=== PATIENT | female | born 1965 | race Caucasian/White ===

== ENCOUNTER 2016-10-29 13:56 | Emergency (ER) | payer BC ==
[~2016-10-29] VITALS: Ht 162.6 cm; Wt 82.9 kg
[~2016-10-29 13:56] MED LIST: CALC500C70 PO; CYAN10005 PO; MISCCAP80 PO; OMEG10007 PO; [UNRECOGNIZED DRUG - CODE] PO
[2016-10-29 14:01] VITALS: TEMP 36.7; Ht 162.6 cm; Wt 82.9 kg
[2016-10-29] MEDS ORDERED: ONDANSETRON INJ 2 MG/ML 2 ML VIAL IV STA (15:50)
[2016-10-29] MEDS ORDERED: SODIUM CHLORIDE 0.9% 1000ML 1,000 ML IV STA (15:50)
[2016-10-29] MEDS ORDERED: OPTIRAY 320 IV PRN (16:15)
[2016-10-29 16:28] LABS: BASO % 0.5 %; BASO ABS # 0.03 K/uL (0-0.2); COMPLETE YES; EOS % 2.6 %; HEMATOCRIT 43.9 % (37-47); IG% 0.3 %; LYMPH % 36.3 %; MEAN CELL VOLUME 86.9 fL (80-100); MEAN CORPUSCULAR HEMOGLOBIN 29.3 pg (25-34); MEAN CORPUSCULAR HGB CONC 33.7 g/dl (32-36); MEAN PLATELET VOLUME 10.4 fL (7.4-10.4); MONO % 7.4 %; NEUT % 52.9 %; PLATELET COUNT 253 K/uL (130-400); RED BLOOD COUNT 5.05 M/uL (4.2-5.4); WHITE BLOOD COUNT 6.62 K/uL (4.8-10.8)
[2016-10-29 16:42] LABS: URINE APPEARANCE CLEAR (CLEAR); URINE BILIRUBIN NEG (NEG); URINE COLOR YELLOW; URINE NITRITE NEG (NEG); URINE PH 5.5 (4.5-7.5); URINE SPECIFIC GRAVITY 1.012 (1.000-1.030); UROBILINOGEN NEG (NEG)
[2016-10-29 16:45] LABS: MANUAL MICROSCOPIC REQUIRED? NO; REVIEW REQ? NO
[2016-10-29 16:56] LABS: BUN/CREATININE RATIO 11.9 (10-20); CALCIUM 9.6 mg/dl (8.5-10.1); CREATININE 0.72 mg/dl (0.60-1.20); POTASSIUM 3.6 mmol/L (3.5-5.1)
--- NOTE | 2016-10-29 18:44 | DIAGNOSTIC IMAGING REPORT ---
CT OF THE ABDOMEN AND PELVIS WITH CONTRAST CLINICAL HISTORY: Right-sided abdominal pain. COMPARISON STUDY: CT of the abdomen and pelvis November 07, 2015 per TECHNIQUE: Following IV administration of 115 mL of Optiray-320, axial images of the abdomen and pelvis were obtained from the lung bases to the proximal femurs. Images were reviewed in the axial, sagittal, and coronal planes. IV contrast was administered without complication. Oral contrast was administered. CT DOSE: 412.92 mGy.cm FINDINGS: The lung bases are clear. The liver, spleen, adrenal glands, kidneys and pancreas are normal. There is no peripancreatic or pericholecystic infiltration. There is no biliary or pancreatic ductal dilatation. The caliber and wall thickness of small and large bowel are normal. The appendix is normal. There is no ascites. There is no lymphadenopathy. There is no evidence for a bowel obstruction. Skeletal structures are unremarkable. The uterus is surgically absent. IMPRESSION: No acute process within the abdomen or pelvis. Normal appendix. Electronically signed by: Beau Gipson M.D. 10/29/2016 6:43 PM Dictated Date/Time: 10/29/2016 6:39 PM
[2016-10-29 19:17] VITALS: BP 140/90; PULSE 88; O2SAT 98
--- NOTE | 2016-10-29 22:14 | EMERGENCY ROOM VISIT NOTE ---
ED Visit Note First contact with patient: 15:05 Chief Complaint: Right-sided abdominal pain. History of Present Illness: Ms. Schmitt is a 50 year-old white female who ambulates into the ED accompanied by her complaining of right mid quadrant abdominal pain. Historically patient reports status post hysterectomy and exploratory laparoscopy for lysis of adhesions. Patient reports for the last 2 weeks she has had a bloating sensation in her abdomen and mild diffuse abdominal discomfort. This has been associated with intermittent nausea, chills, one day of multiple episodes of watery stools. She was seen by her primary care provider and a right upper quadrant ultrasound was performed on Wednesday, 2 days ago; I was able to retrieve the radiologist report from her ultrasound which shows and unremarkable right upper quadrant ultrasound with no apparent some gallbladder disease, liver disease or renal disease. Is noted that the pancreas was not well-visualized. She reports over the last 2 or 3 days her pain has become severe and constant. She places her discomfort in the mid quadrant area on the right side of the abdomen. She is not able to describe her discomfort. She rates her discomfort 8/10. She denies radiation of her discomfort. Her pain worsens with palpation and moving into the sitting position. She has not identified any alleviating factors related to the pain. She reports she has taken one dose of Tylenol last evening without relief of her discomfort. Associated with her discomfort she continues to be nauseated but has not vomited and has noted over the last 2 days that she has only moved her bowels once and reports that a small amount. Additionally she reports she is not flagellated and she is having mild urinary burning and an increase in urinary frequency. Patient denies silvio fevers, sweats, skin eruptions, skin color changes, upper respiratory tract symptoms, shortness of breath, chest pain, rectal bleeding, black/tarry stools, hematuria, vaginal bleeding, vaginal discharge, back/flank pain. Review of Systems: As noted above in history of present illness. All body systems were reviewed and found to be negative as noted above. Past Medical History: As previously noted Current Medications: Probiotic, vitamin B12, omega-3 fish oil. Allergies to Medications: Fluconazole. Social History: Patient is currently employed; she lives with her and feels safe in her home environment; she admits to tobacco use and denies alcohol use. Physical Examination: Vital Signs: Date Time Temp Pulse Resp B/P Pulse Ox O2 Delivery O2 Flow Rate FiO2 10/29/16 19:17 88 20 140/90 98 Room Air 10/29/16 18:00 81 20 153/101 98 Room Air 10/29/16 16:00 74 20 147/100 96 Room Air 10/29/16 14:01 36.7 75 18 163/98 96 Room Air GENERAL: 50-year-old female in moderate distress due to pain, nontoxic-appearing , afebrile and hemodynamically stable. NEUROLOGICAL: Awake, alert and oriented to person, place and time. Answering questions appropriately and following commands. Normal gait. Good hand eye coordination. SKIN: Warm, dry and pink. No soft tissue eruptions or trauma noted. HEENT: Atraumatic and normocephalic. PERRLA. Sclera white and conjunctiva pink. Oral cavity moist and pink. Pharynx is nonerythematous or edematous. Speech normal. No lymphadenopathy. Trachea midline. No jugular venous distention. BACK: No tenderness over the bony spine. No CVA tenderness. THORAX: Lungs sounds are clear to auscultation and equal bilaterally with symmetrical chest wall. No wheezing, rales or rhonchi. No crepitus, tenderness , subcutaneous air or deformities noted. HEART: Regular rate and rhythm. No gallops, rubs or murmurs are appreciated. ABDOMEN: Mildly distended, soft with diffuse tenderness that is more pronounced in the right mid quadrant. Decreasedbowel sounds in all quadrants. No guarding , rigidity or organomegaly. EXTREMITIES: Moves all extremities well on command and with purpose. All distal neurovascular statuses are intact and equal bilaterally. ED Course: Patient is assessed as noted above. Laboratory Testing: Test 10/29/16 16:15 10/29/16 16:20 Range/Units White Blood Count 6.62 4.8-10.8 K/uL Red Blood Count 5.05 4.2-5.4 M/uL Hemoglobin 14.8 12.0-16.0 g/dL Hematocrit 43.9 37-47 % Mean Corpuscular Volume 86.9 80-100 fL Mean Corpuscular Hemoglobin 29.3 25-34 pg Mean Corpuscular Hemoglobin Concent 33.7 32-36 g/dl Platelet Count 253 130-400 K/uL Mean Platelet Volume 10.4 7.4-10.4 fL Neutrophils (%) (Auto) 52.9 % Lymphocytes (%) (Auto) 36.3 % Monocytes (%) (Auto) 7.4 % Eosinophils (%) (Auto) 2.6 % Basophils (%) (Auto) 0.5 % Neutrophils # (Auto) 3.51 1.4-6.5 K/uL Lymphocytes # (Auto) 2.40 1.2-3.4 K/uL Monocytes # (Auto) 0.49 0.11-0.59 K/uL Eosinophils # (Auto) 0.17 0-0.5 K/uL Basophils # (Auto) 0.03 0-0.2 K/uL RDW Standard Deviation 40.2 36.4-46.3 fL RDW Coefficient of Variation 12.5 11.5-14.5 % Immature Granulocyte % (Auto) 0.3 % Immature Granulocyte # (Auto) 0.02 0.00-0.02 K/uL Sodium Level 141 136-145 mmol/L Potassium Level 3.6 3.5-5.1 mmol/L Chloride Level 106 98-107 mmol/L Carbon Dioxide Level 28 21-32 mmol/L Anion Gap 7.0 3-11 mmol/L Blood Urea Nitrogen 9 7-18 mg/dl Creatinine 0.72 0.60-1.20 mg/dl Est Creatinine Clear Calc Drug Dose 96.3 ml/min Estimated GFR () 112.4 Estimated GFR (Non- 97.0 BUN/Creatinine Ratio 11.9 10-20 Random Glucose 81 70-99 mg/dl Calcium Level 9.6 8.5-10.1 mg/dl Total Bilirubin 0.6 0.2-1 mg/dl Direct Bilirubin 0.1 0-0.2 mg/dl Aspartate Amino Transf (AST/SGOT) 22 15-37 U/L Alanine Aminotransferase (ALT/SGPT) 38 12-78 U/L Alkaline Phosphatase 90 45-117 U/L Total Protein 8.3 6.4-8.2 gm/dl Albumin 4.4 3.4-5.0 gm/dl Lipase 117 73-393 U/L Urine Color YELLOW Urine Appearance CLEAR CLEAR Urine pH 5.5 4.5-7.5 Urine Specific [place] 1.012 1.000-1.030 Urine Protein NEG NEG Urine Glucose (UA) NEG NEG Urine Ketones NEG NEG Urine Occult Blood NEG NEG Urine Nitrite NEG NEG Urine Bilirubin NEG NEG Urine Urobilinogen NEG NEG Urine Leukocyte Esterase NEG NEG Contrast Abdominal/Pelvic CT: Was reviewed by myself and read by the radiologist showing no acute process within the pelvis or abdomen and normal- appearing appendix. Patient was hydrated with normal saline and received 4 mg of Zofran; she was offered pain medications and refused. Patient was reassessed multiple times during her stay in the emergency department. Patient's case was reviewed with Dr. Guidry; we agreed on diagnostic approach , treatment, disposition and plan. Patient was educated about natalio's findings and instructed on her treatment plan; she verbalizes understanding and agreement with this plan. Clinical Impression: Right-sided abdominal pain. Decision-Making: Initially my differential diagnosis I considered appendicitis, bowel obstruction, constipation, colitis, perforated viscus, kidney stone and other causes. Disposition: Patient discharged home in stable condition accompanied by her ; prior to departure she was reassessed and subjectively reported she was feeling much better and rated her discomfort 1/10 and reported resolution of nausea. Plan: Patient was encouraged to use ibuprofen or acetaminophen as needed for pain every 6 hours or alternate every 3 hours. Patient was encouraged to bland diet for the next 48 hours and stay well hydrated. Patient was encouraged to follow-up with her PCP for recheck and possible referral to gastroenterology. Patient was encouraged return the ED for worsening/uncontrolled pain, fevers, uncontrolled vomiting, bloody stools or any new/concerning symptoms.
== END 2016-10-29 19:18 | disposition home or self-care (01) ==
LOC: C.EDB 14:00 → C.EDC 19:18
DX: R10.84 Generalized abdominal pain (principal); Z72.0 Tobacco use; Z90.710 Acquired absence of both cervix and uterus; Z98.890 Other specified postprocedural states

== ENCOUNTER → 2017-01-15 | Outpatient (CLI) | payer BC ==
[~2017-01-15] MED LIST changes: -CALC500C70 PO; -[UNRECOGNIZED DRUG - CODE] PO
--- NOTE | 2017-01-18 07:43 | MAMMOGRAPHY REPORT ---
BILATERAL DIGITAL SCREENING MAMMOGRAM TOMOSYNTHESIS WITH CAD: 01/15/2017 CLINICAL HISTORY: Routine screening. Patient has no complaints. TECHNIQUE: Breast tomosynthesis in addition to standard 2D mammography was performed. Current study was also evaluated with a Computer Aided Detection (CAD) system. COMPARISON: Comparison is made to exams dated: 01/10/2016 mammogram, 01/23/2015 mammogram - [facility], 01/01/2014 mammogram - [facility], 01/07/2015 mammogram - [facility], 10/07/2012 mammogram, and 10/02/2011 mammogram - [facility]. BREAST COMPOSITION: There are scattered areas of fibroglandular density in both breasts. FINDINGS: No suspicious masses, calcifications, or areas of architectural distortion are noted in ei ther breast. There has been no significant interval change compared to prior exams. IMPRESSION: ACR BI-RADS CATEGORY 1: NEGATIVE There is no mammographic evidence of malignancy. A 1 year screening mammogram is recommended. The pa tient will receive written notification of the results. Approximately 10% of breast cancers are not detected with mammography. A negative mammographic report should not delay biopsy if a clinically suggestive mass is present. Raisa Stuart M.D. ah/:01/15/2017 16:00:54 Head Waiter/Waitress: Manda FUENTES)(Renee), [facility] letter sent: Normal 1/2 BI-RADS Code: ACR BI-RADS Category 1: Negative
== END | disposition home or self-care (01) ==
LOC: C.MAMM 08:42
PROVIDERS: ATTEND Obstetrics & Gynecology
DX: Z12.31 Encounter for screening mammogram for malignant neoplasm of breast (principal)

== ENCOUNTER → 2018-01-21 | Outpatient (CLI) | payer BC ==
[~2018-01-21] MED LIST changes: +LINA1CAP PO; +MULT-506 PO; +PRLSR20 PO; +TRIATAB3 PO
--- NOTE | 2018-01-21 14:35 | MAMMOGRAPHY REPORT ---
BILATERAL DIGITAL SCREENING MAMMOGRAM TOMOSYNTHESIS WITH CAD: 01/21/2018 CLINICAL HISTORY: Routine screening. Patient has no complaints. TECHNIQUE: The study was acquired using full field digital technology and interpreted from soft copy. Breast tomosynthesis in addition to standard 2D mammography was performed. Current study was also ev aluated with a Computer Aided Detection (CAD) system. COMPARISON: Comparison is made to exams dated: 01/15/2017 mammogram, 01/10/2016 mammogram, 01/23/2015 ma mmogram, 01/07/2015 mammogram - [facility], 01/01/2014 mammogram, and 10/07/2012 mammo gram - [facility]. BREAST COMPOSITION: There are scattered areas of fibroglandular density in both breasts. FINDINGS: No suspicious masses, calcifications, or areas of architectural distortion are noted in either breast . There has been no significant interval change compared to prior exams. IMPRESSION: ACR BI-RADS CATEGORY 1: NEGATIVE There is no mammographic evidence of malignancy. A 1 year screening mammogram is recommended.( 019) The patient will receive written notification of the results. Some breast cancers are not detected with mammography. A negative mammographic report should not scarlett y biopsy if a clinically suggestive mass is present. Raisa Stuart M.D. /:01/21/2018 08:51:03 Chair Mechanic: Haven Harrell [facility] letter sent: Normal 1/2 BI-RADS Code: ACR BI-RADS Category 1: Negative
== END | disposition home or self-care (01) ==
LOC: C.MAMM 08:30
PROVIDERS: ATTEND Obstetrics & Gynecology
DX: Z12.31 Encounter for screening mammogram for malignant neoplasm of breast (principal)

== ENCOUNTER → 2018-01-28 | Day surgery (SDC) | payer BC ==
[2018-01-24 16:11] VITALS: Ht 162.6 cm; Wt 81.8 kg
[~2018-01-28] VITALS: Ht 162.6 cm; Wt 81.8 kg
[~2018-01-28] MED LIST changes: +LIDOCAINE HCL 2% 2 ML VIAL (20MG/ML) ONE; +PROPOFOL IV EMULSION 10 MG/ML 20 ML VIAL ONE; +SODIUM CHLORIDE 0.9% 500ML 500 ML IV ONE
--- NOTE | 2018-01-28 12:57 | Endo History and Physical ---
History & Physical Date of Service: Jan 28, 2018. Chief Complaint: h/o polyps Referring Physician: Dr. Dodd History of Present Illness hx polyps Past Medical History Gynecological Problems, Other Past Surgical History Hx Cardiac Surgery: No Hx Internal Defibrillator: No Hx Pacemaker: No Hx Abdominal Surgery: Yes (HYSTERECTOMY,REMOVAL PELVIC MASS TO R OVARY-10/26/14, MASS REM/R OVARY 2016 ) Hx of Implantable Prosthesis: No Hx Post-Op Nausea and Vomiting: No Hx Cancer Surgery: No Hx Thoracic Surgery: No Hx Orthopedic: No Hx Urinary Tract Surgery: No Family History Colon CA Social History Smoking Status: Current Every Day Smoker Hx Substance Use: No Hx Alcohol Use: Yes (OCC SOCIAL) Allergies Coded Allergies: Fluconazole (Verified Allergy, Intermediate, Rash, 01/28/18) Current Medications Reported Home Medications Medications Dose Route/Sig Max Daily Dose Days Date Category Linzess (Linaclotide) 145 Mcg Cap 145 Mcg PO PRN 01/24/18 Reported Prilosec (Omeprazole) 20 Mg Capcr 20 Mg PO PRN 01/24/18 Reported Triamterene/Hctz 37.5-25MG (Triamterene/HCTZ) 1 Tab Tab 1 Tab PO PRN 01/24/18 Reported Multivitamin (Multivitamins) Tab 1 Tab PO QAM 01/24/18 Reported [place]-3 (Fish Oil) 1 Ea Cap 1 Cap PO QAM 12/11/14 Reported Vitamin B-12 (Cyanocobalamin) 1,000 Mcg Tab 1,000 Mcg PO QAM 10/26/14 Reported Probiotic (Probiotic Product) 1 Cap Cap 1 Cap PO QAM 10/26/14 Reported Vital Signs Weight (Kilograms): 81.82 Height (Feet): 5 Height (Inches): 4 Date Time Temp Pulse Resp B/P (MAP) Pulse Ox O2 Delivery O2 Flow Rate FiO2 01/28/18 12:35 37.2 76 18 145/99 (114) 94 Room Air Physical Exam General Appearance: WD/WN, no apparent distress Respiratory/Chest: Auscultation: breath sounds normal Cardiovascular: Heart Auscultation: RRR Abdomen: Bowel Sounds: normal Inspection & Palpation: soft, non-distended, no tenderness, guarding & rebound Assessment and Plan colonsocopy
--- NOTE | 2018-01-28 13:31 | Discharge Instructions ---
Endoscopy Patient Instructions Date / Procedure(s) Performed Jan 28, 2018. Colonoscopy Allergy Information Coded Allergies: Fluconazole (Verified Allergy, Intermediate, Rash, 01/28/18) Discharge Date / Findings Jan 28, 2018. polyp-removed Medication Instructions Restart Stopped Medication(s): Reported Home Medications Medications Dose Route/Sig Max Daily Dose Days Date Category Linzess (Linaclotide) 145 Mcg Cap 145 Mcg PO PRN 01/24/18 Reported Prilosec (Omeprazole) 20 Mg Capcr 20 Mg PO PRN 01/24/18 Reported Triamterene/Hctz 37.5-25MG (Triamterene/HCTZ) 1 Tab Tab 1 Tab PO PRN 01/24/18 Reported Multivitamin (Multivitamins) Tab 1 Tab PO QAM 01/24/18 Reported [place]-3 (Fish Oil) 1 Ea Cap 1 Cap PO QAM 12/11/14 Reported Vitamin B-12 (Cyanocobalamin) 1,000 Mcg Tab 1,000 Mcg PO QAM 10/26/14 Reported Probiotic (Probiotic Product) 1 Cap Cap 1 Cap PO QAM 10/26/14 Reported Reported Home Medications Medications Dose Route/Sig Max Daily Dose Days Date Category Linzess (Linaclotide) 145 Mcg Cap 145 Mcg PO PRN 01/24/18 Reported Prilosec (Omeprazole) 20 Mg Capcr 20 Mg PO PRN 01/24/18 Reported Triamterene/Hctz 37.5-25MG (Triamterene/HCTZ) 1 Tab Tab 1 Tab PO PRN 01/24/18 Reported Multivitamin (Multivitamins) Tab 1 Tab PO QAM 01/24/18 Reported [place]-3 (Fish Oil) 1 Ea Cap 1 Cap PO QAM 12/11/14 Reported Vitamin B-12 (Cyanocobalamin) 1,000 Mcg Tab 1,000 Mcg PO QAM 10/26/14 Reported Probiotic (Probiotic Product) 1 Cap Cap 1 Cap PO QAM 10/26/14 Reported Provider Instructions Activity Restrictions - No exercising or heavy lifting for 24 hours. - Do not drink alcohol the day of the procedure. - Do not drive a car or operate machinery until the day after the procedure. - Do not make any important decisions or sign important papers in 24 hours after the procedure. Following Day: - Return to full activity which may include returning to work/school. Diet Start your diet with liquids and light foods (jello, soup, juice, toast). Then eat your usual diet if not nauseated. Treatment For Common After Affects For mild abdominal pain, bloating, or excessive gas: - Rest - Eat lightly - Lie on right side Follow-Up Information Follow-up with Dr. Dodd as scheduled Anesthesia Information What You Should Know You have had a procedure that required some medicine to reduce anxiety and discomfort. This treatment is called moderate sedation. After receiving the treatment, you may be sleepy, but you will be able to breathe on your own. The effects of the treatment may last for several hours. Follow these instructions along with Activity/Diet recommendations noted above: * Do NOT do anything where dizziness or clumsiness would be dangerous. * Rest quietly at home today, then you can be up and about tomorrow. * Have a responsible person stay with you the rest of today. * You may have had an I.V. today. If so, you may take the dressing off later today. Recommendations Call your doctor if: * Trouble breathing * Continuous vomiting for more than 24 hours * Temperature above 101 degrees * Severe abdominal pain or bloating * Pain not relieved by pain medicine ordered * There is increased drainage or redness from any incision * A large amount of rectal bleeding greater than 2-3 tablespoons. (If you had a polyp/s removed or have hemorrhoids, a small amount of blood - from the rectum is to be expected.) * You have any unanswered questions or concerns. IN THE EVENT OF A SERIOUS EMERGENCY, GO TO THE NEAREST EMERGENCY ROOM Your discharge instructions were prepared by provider Sam Young. Patient Instructions Signature Page Timothy Schmitt Patient (or Guardian) Signature/Date: I have read and understand the instructions given to me by my caregivers. Caregiver/RN/Doctor Signature/Date: The above-named patient and/or guardian has received patient instructions on this date. + Original Patient Signature Page (only) stays with chart. Please make copy for patient.
--- NOTE | 2018-01-28 13:45 | GI REPORT ---
Patient Name: Timothy Schmitt Procedure Date: 01/28/2018 12:56 PM Date of : 1965 Admit Type: Outpatient Age: 52 Gender: Female Attending MD: Sam Young MD Procedure: Colonoscopy Providers: Sam Young MD Referring MD: Juve Dodd Indications: High risk colon cancer surveillance: Personal history of colonic polyps Medicines: Propofol per Anesthesia Complications: No immediate complications. Estimated blood loss: None. Estimated Blood Loss: Estimated blood loss: none. Procedure: Pre-Anesthesia Assessment: - Prior to the procedure, a History and Physical was performed, and patient medications and allergies were reviewed. The patient's tolerance of previous anesthesia was also reviewed. The risks and benefits of the procedure and the sedation options and risks were discussed with the patient. All questions were answered, and informed consent was obtained. Prior Anticoagulants: The patient has taken no previous anticoagulant or antiplatelet agents. ASA Grade Assessment: II - A patient with mild systemic disease. After reviewing the risks and benefits, the patient was deemed in satisfactory condition to undergo the procedure. After I obtained informed consent, the scope was passed under direct vision. Throughout the procedure, the patient's blood pressure, pulse, and oxygen saturations were monitored continuously. The Scope was introduced through the anus and advanced to the terminal ileum, with identification of the appendiceal orifice and IC valve. The colonoscopy was performed without difficulty. The patient tolerated the procedure well. The quality of the bowel preparation was good. Findings: The perianal and digital rectal examinations were normal. Pertinent negatives include normal sphincter tone, no palpable rectal lesions and no anal lesion or abnormality was detected. A 10 mm polyp was found in the proximal ascending colon. The polyp was sessile. The polyp was removed with a hot snare. Resection and retrieval were complete. Verification of patient identification for the specimen was done by the physician and optoelectronic technician using the patient's name and medical record number. The exam was otherwise without abnormality. The terminal ileum appeared normal. Impression: - One 10 mm polyp in the proximal ascending colon, removed with a hot snare. Resected and retrieved. - The examination was otherwise normal. - The examined portion of the ileum was normal. Recommendation: - Discharge patient to home (ambulatory). - Resume regular diet. - Continue present medications. - Await pathology results. - Repeat colonoscopy for surveillance based on pathology results. - Return to referring physician as previously scheduled. MD Sam Allen MD 01/28/2018 1:44:48 PM This report has been signed electronically. Note Initiated On: 01/28/2018 12:56 PM Number of Addenda: 0 I attest to the content of the Intraoperative Record and orders documented therein, exceptions below {[id number]}
--- NOTE | 2018-01-28 14:07 | Anesthesiology Progress Note ---
Anesthesia Post Op Note Date & Time Jan 28, 2018 at 14:07 Vital Signs Pain Intensity: 0 Vital Signs Past 12 Hours Date Time Temp Pulse Resp B/P (MAP) Pulse Ox O2 Delivery O2 Flow Rate FiO2 01/28/18 13:51 68 18 141/109 (120) 97 Room Air 01/28/18 13:36 72 18 102/72 (82) 95 Room Air 01/28/18 12:35 37.2 76 18 145/99 (114) 94 Room Air Notes Mental Status: alert / awake / arousable, participated in evaluation Pt Amnestic to Procedure: Yes Nausea / Vomiting: adequately controlled Pain: adequately controlled Airway Patency, RR, SpO2: stable & adequate BP & HR: stable & adequate Hydration State: stable & adequate Anesthetic Complications: no major complications apparent
[2018-01-28 14:09] VITALS: BP 158/107; PULSE 71; O2SAT 99
== END | disposition home or self-care (01) ==
LOC: C.GI 12:12
PROVIDERS: ATTEND Internal Medicine Gastroenterology
DX: Z12.11 Encounter for screening for malignant neoplasm of colon (principal); D12.2 Benign neoplasm of ascending colon; F17.200 Nicotine dependence, unspecified, uncomplicated; I10 Essential (primary) hypertension; K21.9 Gastro-esophageal reflux disease without esophagitis; Z86.010 Personal history of colon polyps; Z80.0 Family history of malignant neoplasm of digestive organs; Z88.8 Allergy status to other drugs, medicaments and biological substances; Z86.14 Personal history of Methicillin resistant Staphylococcus aureus infection

== ENCOUNTER 2018-11-15 17:46 | Observation (INO) ==
[2018-11-15] MEDS ORDERED: ONDANSETRON INJ 2 MG/ML 2 ML VIAL IV STA (18:21)
[2018-11-15] MEDS ORDERED: MoRPHine SULFATE 4 MG/ML 1 ML CARP\\VIAL IV PRN ×2 (18:21→23:16)
[2018-11-15] MEDS ORDERED: SODIUM CHLORIDE 0.9% 1000ML 1,000 ML IV SCH (18:30)
[2018-11-15 18:55] LABS: Basophils # (auto) 0.02 K/uL (0-0.2); Basophils % (auto) 0.2 %; Eosinophils # (auto) 0.07 K/uL (0-0.5); Eosinophils % (auto) 0.6 %; Hematocrit (blood only) 38.8 % (37-47); Hemoglobin 14.3 g/dL (12.0-16.0); Immature Granulocytes # (auto) 0.03 K/uL (0.00-0.02); Immature Granulocytes % (auto) 0.2 %; Lymphocytes # (auto) 1.98 K/uL (1.2-3.4); Mean Corpuscular Hgb Conc 36.9 g/dL (32-36); Mean Corpuscular Volume 85.8 fL (80-100); Mean Platelet Volume 10.6 fL (7.4-10.4); Monocytes # (auto) 0.97 K/uL (0.11-0.59); Monocytes % (auto) 7.8 %; Neutrophils # (auto) 9.34 K/uL (1.4-6.5); Neutrophils % (auto) 75.2 %; Platelet Count 247 K/uL (130-400); RDW Coefficient of Variation 13.2 % (11.5-14.5); RDW Standard Deviation 41.5 fL (36.4-46.3); Red Blood Count 4.52 M/uL (4.2-5.4); White Blood Count 12.41 K/uL (4.8-10.8)
[2018-11-15 18:57] LABS: iSTAT Creatinine 0.7 mg/dl (0.6-1.3); iSTAT Hemoglobin 13.3 g/dl (12.0-16.0); iSTAT Ionized Calcium 1.11 mmol/l (1.12-1.32); iSTAT Potassium 3.6 mEq/L (3.3-5.0)
[2018-11-15 19:02] LABS: Appearance Urine Clear (Clear); Bacteria Urine Automated Negative (Negative); Bilirubin Urine Negative (Negative); Blood Urine Negative (Negative); Color Urine Yellow; Glucose Urine UA Negative (Negative); Ketones Urine 2+ (Negative); Leukocyte Esterase Urine 1+ (Negative); Nitrite Urine Negative (Negative); Protein Urine Negative (Negative); RBC Urine Automated 0-4 /hpf (0-4); Specific Gravity Urine 1.015 (1.000-1.030); Urobilinogen Urine Negative (Negative)
[2018-11-15] MEDS ORDERED: IOVERSOL 100ml IV PRN (19:13)
[2018-11-15 19:29] LABS: BUN Creatinine Ratio 18.7 (10-20); Bilirubin,Total 0.6 mg/dl (0.2-1); Calcium 9.3 mg/dl (8.5-10.1); Creatinine Clr Calc Pharmacy 74.5 ml/min; Est GFR (Non-African American) 79.3; Potassium 3.3 mmol/L (3.5-5.1)
--- NOTE | 2018-11-15 19:29 | CT Scan Report ---
CT OF THE ABDOMEN AND PELVIS WITH CONTRAST CLINICAL HISTORY: Right lower quadrant abdominal pain. COMPARISON STUDY: CT of the abdomen and pelvis October 29, 2016. TECHNIQUE: Following IV administration of 94 mL of Optiray-320, axial images of the abdomen and pelvi s were obtained from the lung bases to the proximal femurs. Images were reviewed in the axial, sagitt al, and coronal planes. IV contrast was administered without complication. Automated exposure contro l was utilized for the study. A dose lowering technique was utilized adhering to the principles of A ALYSSA. CT DOSE: 277.82 mGy.cm FINDINGS: Lung bases are clear. The liver, spleen, adrenal glands, kidneys and pancreas are normal. T here is no biliary or pancreatic ductal dilatation. No hydronephrosis. There is no evidence for a bow el obstruction. A few appendicoliths within the base of the appendix are noted. The appendix is dilat ed, measuring 1.3 cm in caliber. There is moderate periappendiceal infiltration. There is no free air or abscess. There is no evidence for a bowel obstruction. No suspicious osseous lesions are noted. IMPRESSION: Acute appendicitis. No free air or abscess. A few appendicoliths within a moderately dil ated appendix with moderate periappendiceal infiltration. Electronically signed by: Beau Gipson M.D. 11/15/2018 7:27 PM
[2018-11-15] MEDS ORDERED: ONDANSETRON INJ 2 MG/ML 2 ML VIAL ONE (19:56)
[2018-11-15] MEDS ORDERED: DEXAMETHASONE SOD INJ 4 MG/ML VIAL ONE (19:56)
[2018-11-15] MEDS ORDERED: SUCCINYLCHOLINE CHLORIDE 20 MG/ML 10 ML VIAL ONE (19:56)
[2018-11-15] MEDS ORDERED: PROPOFOL IV EMULSION 10 MG/ML 20 ML VIAL IV ONE (19:57)
[2018-11-15] MEDS ORDERED: GLYCOPYRROLATE 0.2 MG/ML VIAL ONE (19:57)
[2018-11-15] MEDS ORDERED: NEOSTIGMINE METHYLSULFATE 5 MG/5 ML SYR ONE (19:57)
[2018-11-15] MEDS ORDERED: fentaNYL citrate 100 MCG/2 ML VIAL ONE ×3 (19:57→21:57)
[2018-11-15] MEDS ORDERED: ROCURONIUM BROMIDE 10 MG/ML 5 ML VIAL ONE (19:57)
[2018-11-15] MEDS ORDERED: MIDAZOLAM HCL 1 MG/ML 2ML VIAL ONE (19:57)
[2018-11-15] MEDS ORDERED: BUPIVACAINE/EPINEPHRINE 0.5% MPF 1:200,000 30 ML VIAL ONE (20:03)
[2018-11-15] MEDS ORDERED: cefOXitin 1,000 MG/50 ML BAG IV STA (20:04)
--- NOTE | 2018-11-15 20:06 | Anesthesiology Consultation ---
Date of Service November 15, 2018 Assessment & Plan (1) Encounter for pre-operative examination: Chart Review Chart Review: Acceptable Risk for Surgery and Patient NOT seen in Pre Admission Testing Consults Requested none History Surgery Operation Date: 11/15/18 20:30 Proposed Procedures p Laparoscopic Appendectomy - Clarence Vargas DO Height/Weight Height: 5 ft 4 in Weight: 70.3 kg Allergies Allergy/AdvReac Type Severity Reaction Status Date / Time fluconazole Allergy Intermediate Rash Verified 11/15/18 18:21 Medications Home Medications Medication Instructions Recorded Confirmed Last Taken Lactobacillus acidophilus 460 mg PO QAM 11/15/18 11/15/18 11/15/18 [Florajen] chloroquine phosphate 500 mg PO WK 11/15/18 11/15/18 11/11/18 chlorthalidone 25 mg PO QAM 11/15/18 11/15/18 11/15/18 cyanocobalamin (vitamin B-12) 1,000 mcg PO QAM 11/15/18 11/15/18 11/15/18 [Vitamin B-12] hepatitis A virus vaccine (PF) 0 unit IM UD 11/15/18 11/15/18 Unknown ibuprofen [Advil] 200 mg PO Q6H PRN 11/15/18 11/15/18 11/15/18 12:00 400mg linaclotide [Linzess] 145 mcg PO DAILY PRN 11/15/18 11/15/18 Unknown magnesium oxide 400 mg PO BIDM 11/15/18 11/15/18 11/15/18 omeprazole 20 mg PO DAILY PRN 11/15/18 11/15/18 Unknown potassium chloride [Klor-Con M10] 20 meq PO QAM 11/15/18 11/15/18 11/15/18 Active Medications Generic Name Dose Route Start Last Admin Trade Name Freq PRN Reason Stop Dose Admin Ioversol 94 ml 11/15/18 19:13 11/15/18 19:14 Optiray 320 100ml IV 11/19/18 19:12 94 ml ONCE PRN Administration Interaction Checking Morphine Sulfate 4 mg 11/15/18 18:21 11/15/18 19:35 Morphine Sulfate IV 11/29/18 18:20 4 mg Q15M PRN Administration Pain Past Medical History Medical History Hypertension Exercise / Class Metabolic Activity II 4-5 Yardwork/Stairs/Walk up hill Past Surgical History Surgical History S/P hysterectomy (Resolved) scar tissue removal Past Anesthesia History No Hx of Anesthesia Complications and No Family Hx of Anesthesia Complications History of PONV No Hx of PONV and No Hx of Motion Sickness Social History Smoking Status: Current every day smoker (5 ciagarrettes) Do You Dip or Chew Tobacco: No Hx Alcohol Use: No Hx Substance Use: No Physical Exam Vital Signs Last Vital Signs Temp 37.0 C 11/15/18 18:07 Pulse 83 11/15/18 20:24 Resp 15 11/15/18 20:24 BP 134/87 11/15/18 20:24 Pulse Ox 97 11/15/18 20:24 Testing Laboratory Results 11/15/18 18:41 11/15/18 18:41 11/15/18 18:41 Urine Color Yellow Urine Appearance Clear Urine pH 5.0 Ur Specific [place] 1.015 Urine Protein Negative Urine Glucose (UA) Negative Urine Ketones 2+ H Urine Nitrite Negative Ur Leukocyte Esterase 1+ H Urine WBC (Auto) 5-10 H Urine RBC (Auto) 0-4 U Hyaline Cast (Auto) 1-5 U Epithel Cells (Auto) 10-20 H Urine Bacteria (Auto) Negative
--- NOTE | 2018-11-15 20:14 | Emergency Department Note ---
Entered by Valarie Neal acting as a scribe for Rickey Lee DO History of Present Illness General Chief complaint: Abdominal Pain Stated complaint: SEVERE LOWER ABDOMINAL PAIN Time Seen by Provider: 11/15/18 18:11 Source: patient History of Present Illness Onset (ago): day(s) 1 Location: abdomen (right-sided) Radiation: back Pain Consistency: + other (worsening ) Maximum Pain Intensity: 10 Associated symptoms: + fever/chills (positive chills; negative fever), + headaches, + loss of appetite, + nausea/vomiting (positive nausea; negative vomiting ) and + other (positive diarrhea) The patient is a 52 year old female who presents to the Emergency Room with complaints of worsening right-sided abdominal pain that began yesterday. She states that her pain radiates to the right side of the back. The patient states that during this time she has had a loss of appetite and nausea. She states that she has a headache, and states that she had diarrhea this morning. The patient states that she has had chills during this time, but denies a current fever. The patient states that she is unsure if she had dark or bloody urine today. The patient states that she previously had diverticulitis. The patient states that she still has her appendix. She states that she previously had a hysterectomy, and states that she had 2 further surgeries to remove scar tissue after this. Home Medications Home Medications Medication Instructions Recorded Confirmed Type Lactobacillus acidophilus 460 mg PO QAM 11/15/18 11/15/18 History [Florajen] chloroquine phosphate 500 mg PO WK 11/15/18 11/15/18 History chlorthalidone 25 mg PO QAM 11/15/18 11/15/18 History cyanocobalamin (vitamin B-12) 1,000 mcg PO QAM 11/15/18 11/15/18 History [Vitamin B-12] hepatitis A virus vaccine (PF) 0 unit IM UD 11/15/18 11/15/18 History ibuprofen [Advil] 200 mg PO Q6H PRN 11/15/18 11/15/18 History linaclotide [Linzess] 145 mcg PO DAILY PRN 11/15/18 11/15/18 History magnesium oxide 400 mg PO BIDM 11/15/18 11/15/18 History omeprazole 20 mg PO DAILY PRN 11/15/18 11/15/18 History potassium chloride [Klor-Con M10] 20 meq PO QAM 11/15/18 11/15/18 History Allergies Allergy/AdvReac Type Severity Reaction Status Date / Time fluconazole Allergy Intermediate Rash Verified 11/15/18 18:21 Past Med/Surg History Medical History Hypertension Surgical History S/P hysterectomy (Resolved) Social History Preferred Language: Honduran Communication Ability: Effective Rate Clerk Passenger Required: No Beliefs That Will Affect Care: None Current Living Situation: Spouse Other Information That Helps Us Care for You: No Feels Safe at Home: Yes Safety Concerns: Feels Safe At This Time Smoking Status: Current every day smoker Tobacco Type: cigarettes and e- cigarettes Do You Dip or Chew Tobacco: No Second Hand Exposure: No Tobacco Cessation Education Requested by Patient: No Hx Alcohol Use: Yes Alcohol type: wine Hx Substance Use: No Review of Systems See HPI for pertinent positives & negatives. and A total of 10 systems reviewed and were otherwise negative Physical Exam Vital Signs Vital Signs - 24 hr 11/15/18 18:07 11/15/18 19:36 11/15/18 20:24 Temperature 37.0 C Temperature Source Oral Sepsis Recent Fever Within 48 Hours No Sepsis New/Unexplained Change in Mental Status No Sepsis Action Taken by Nursing No Action Required Pulse Rate 88 Pulse Rate [Apical] Pulse Rate [Finger] 86 83 Pulse Rhythm [Apical] Respiratory Rate 17 20 15 Respiratory Effort / Characteristics Non-Labored Respiratory Depth Normal Respiratory Pattern Regular Blood Pressure 133/89 Blood Pressure [Left Arm] Blood Pressure [Right Arm] 160/98 H 134/87 Blood Pressure Mean 103 Blood Pressure Mean [Left Arm] Blood Pressure Mean [Right Arm] 118 102 Blood Pressure Position Sitting Blood Pressure Position [Left Arm] Pulse Oximetry 97 96 97 Oxygen Delivery Method Room Air Room Air Room Air Oxygen Flow Rate 11/15/18 20:38 11/15/18 21:52 11/15/18 22:00 Temperature 38.1 C H Temperature Source Temporal Artery Scan Sepsis Recent Fever Within 48 Hours Sepsis New/Unexplained Change in Mental Status Sepsis Action Taken by Nursing Pulse Rate Pulse Rate [Apical] 79 68 Pulse Rate [Finger] Pulse Rhythm [Apical] Regular Regular Respiratory Rate 15 16 16 Respiratory Effort / Characteristics Non-Labored Spontaneous Non-Labored Spontaneous Respiratory Depth Normal Normal Respiratory Pattern Blood Pressure Blood Pressure [Left Arm] 131/74 115/73 Blood Pressure [Right Arm] Blood Pressure Mean Blood Pressure Mean [Left Arm] 93 87 Blood Pressure Mean [Right Arm] Blood Pressure Position Blood Pressure Position [Left Arm] Semi-fowlers Semi-fowlers Pulse Oximetry 97 100 100 Oxygen Delivery Method Room Air Oxymask Oxymask Oxygen Flow Rate 8 8 GENERAL: Patient is awake and alert. She is very anxious appearing and appears to be uncomfortable. EYES: The conjunctivae are clear. The pupils are round and reactive. EARS, NOSE, MOUTH AND THROAT: The nose is without any evidence of any deformity. Mucous membranes are moist tongue is midline NECK: The neck is nontender and supple. RESPIRATORY: Normal respiratory effort is noted there is no evidence of wheezing rhonchi or rales CARDIOVASCULAR: Regular rate and rhythm noted there no murmurs rubs or gallops normal S1 normal S2 GASTROINTESTINAL: The abdomen is nondistended and soft. There is tenderness in the right lower quadrant. There is guarding in the right lower quadrant. BACK: No midline tenderness or or step-off noted range of motion in flexion extension as well as rotation no signs of muscle spasm noted MUSCULOSKELETAL/EXTREMITIES: There is no evidence of gross deformity full range of motion is noted in the hips and shoulders SKIN: There is no obvious evidence of any rash. There are no petechiae, pallor or cyanosis noted. NEUROLOGIC: Patient is awake alert and oriented x3. Course 1820: The patient was evaluated in room C5, and a complete history and physical examination were performed. 1934: I discussed the case with Dr. Ramila Nelson who states that he will take the patient to the OR. 1941: I updated the patient on all results. Consultations Consultation #1: I discussed the case with Dr. Ramila Nelson who states that he will take the patient to the OR. Time: 19:35 Administered Medications Ioversol (Optiray 320 100ml) 94 ml IV ONCE PRN PRN Reason: Interaction Checking Stop: 11/19/18 19:12 Last Admin: 11/15/18 19:14 Dose: 94 ml Documented by: [id number] Morphine Sulfate (Morphine Sulfate) 4 mg IV Q15M PRN PRN Reason: Pain Stop: 11/29/18 18:20 Last Admin: 11/15/18 19:35 Dose: 4 mg Documented by: [id number] Discontinued Medications Bupivacaine HCl/Epinephrine Bitart (Sensorcaine/Epinephrine 0.5% Mpf 1:200,000) Confirm Administered Dose 30 ml .ROUTE .STK-MED ONE Stop: 11/15/18 20:04 Last Admin: 11/15/18 21:38 Dose: 20 ml Documented by: [id number] Fentanyl Citrate (Fentanyl Citrate) 25 mcg IV Q5M PRN PRN Reason: PACU Use Only-Pain Stop: 11/16/18 01:46 Last Admin: 11/15/18 22:12 Dose: 25 mcg Documented by: [id number] Admin: 11/15/18 22:07 Dose: 25 mcg Documented by: [id number] Admin: 11/15/18 22:02 Dose: 25 mcg Documented by: [id number] Admin: 11/15/18 21:57 Dose: 0.25 mcg Documented by: [id number] Fentanyl Citrate (Fentanyl Citrate) Confirm Administered Dose 100 mcg .ROUTE .STK-MED ONE Stop: 11/15/18 21:58 Last Admin: 11/15/18 23:17 Dose: Not Given Documented by: [id number] Hydromorphone HCl (Dilaudid) 0.25 mg IV Q5M PRN PRN Reason: PACU Use Only-Pain Stop: 11/16/18 01:46 Last Admin: 11/15/18 22:23 Dose: 0.25 mg Documented by: [id number] Admin: 11/15/18 22:18 Dose: 0.25 mg Documented by: [id number] Hydromorphone HCl (Dilaudid) Confirm Administered Dose 0.5 mg .ROUTE .STK-MED ONE Stop: 11/15/18 22:19 Last Admin: 11/15/18 23:19 Dose: Not Given Documented by: [id number] Sodium Chloride (Nss 1000ml) 1,000 mls @ 999 mls/hr IV .Q1H1M CELINE Stop: 11/15/18 19:30 Last Infusion: 11/15/18 20:23 Dose: 0 mls/hr Documented by: [id number] Admin: 11/15/18 18:40 Dose: 999 mls/hr Documented by: [id number] Cefoxitin Sodium 2,000 mg/ (Dextrose) 60 mls @ 100 mls/hr IV ONCE CELINE Stop: 11/16/18 21:14 Last Admin: 11/15/18 21:10 Dose: 100 mls/hr Documented by: [id number] Ondansetron HCl (Zofran) 4 mg IV NOW STA Stop: 11/15/18 18:22 Last Admin: 11/15/18 19:35 Dose: 4 mg Documented by: [id number] Medical Decision Making Differential Diagnosis Differential diagnosis: Etiologies such as appendicitis, diverticulitis, PUD, biliary pathology, UTI, pancreatitis, obstruction, mesenteric ischemia, aortic pathology, infections, inflammatory bowel disease, renal colic, as well as others were entertained. Medical Records Attestation: I reviewed the patient's medical records. Home Medications Current Medication List: was personally reviewed by me Laboratory Data Attestation: I reviewed the patient's lab results. Result diagrams: 11/15/18 18:41 11/15/18 18:41 Lab Results 11/15/18 11/15/18 11/15/18 Range/Units 18:41 18:41 18:41 WBC 12.41 H (4.8-10.8) K/uL RBC 4.52 (4.2-5.4) M/uL Hgb 14.3 (12.0-16.0) g/dL POC Hgb (12.0-16.0) g/dl Hct 38.8 (37-47) % POC Hct (37-47) % MCV 85.8 (80-100) fL MCH 31.6 (25-34) pg MCHC 36.9 H (32-36) g/dL RDW Std Deviation 41.5 (36.4-46.3) fL RDW Coeff of Tony 13.2 (11.5-14.5) % Plt Count 247 (130-400) K/uL MPV 10.6 H (7.4-10.4) fL Immature Gran % (Auto) 0.2 % Neut % (Auto) 75.2 % Lymph % (Auto) 16.0 % [place] % (Auto) 7.8 % Eos % (Auto) 0.6 % Baso % (Auto) 0.2 % Immature Gran # (Auto) 0.03 H (0.00-0.02) K/uL Neut # (Auto) 9.34 H (1.4-6.5) K/uL Lymph # (Auto) 1.98 (1.2-3.4) K/uL [place] # (Auto) 0.97 H (0.11-0.59) K/uL Eos # (Auto) 0.07 (0-0.5) K/uL Baso # (Auto) 0.02 (0-0.2) K/uL POC Sodium (135-144) mEq/L Sodium 136 (136-145) mmol/L POC Potassium (3.3-5.0) mEq/L Potassium 3.3 L (3.5-5.1) mmol/L POC Chloride (101-112) mEq/L Chloride 101 (98-107) mmol/L Carbon Dioxide 30 (21-32) mmol/L POC Total CO2 (24-31) mEq/l Anion Gap 5.0 (3-11) POC Anion Gap (16-25) mmol/L POC BUN (7-18) mg/dl BUN 16 (7-18) mg/dl Creatinine 0.84 (0.6-1.2) mg/dl POC Creatinine (0.6-1.3) mg/dl Est Cr Clr Drug Dosing 74.5 ml/min Est GFR ( Amer) 92.0 Est GFR (Non-Af Amer) 79.3 BUN/Creatinine Ratio 18.7 (10-20) Glucose 84 (70-99) mg/dl POC Glucose (other) (70-99) mg/dl Calcium 9.3 (8.5-10.1) mg/dl POC Ioniz Calcium Justice (1.12-1.32) mmol/l Total Bilirubin 0.6 (0.2-1) mg/dl AST 16 (15-37) U/L ALT 23 (12-78) U/L Alkaline Phosphatase 79 (45-117) U/L Total Protein 8.0 (6.4-8.2) gm/dl Albumin 4.0 (3.4-5.0) gm/dl Globulin 4.0 (2.5-4.0) gm/dl Albumin/Globulin Ratio 1.0 (0.9-2) Lipase 225 (73-393) U/L Specimen Hemolysis Urine Color Yellow Urine Appearance Clear (Clear) Urine pH 5.0 (4.5-7.5) Ur Specific [employer] 1.015 (1.000-1.030) Urine Protein Negative (Negative) Urine Glucose (UA) Negative (Negative) Urine Ketones 2+ H (Negative) Urine Blood Negative (Negative) Urine Nitrite Negative (Negative) Urine Bilirubin Negative (Negative) Urine Urobilinogen Negative (Negative) Ur Leukocyte Esterase 1+ H (Negative) Urine WBC (Auto) 5-10 H (0-5) /hpf Urine RBC (Auto) 0-4 (0-4) /hpf U Hyaline Cast (Auto) 1-5 (0-5) /lpf U Epithel Cells (Auto) 10-20 H (0-5) /lpf Urine Bacteria (Auto) Negative (Negative) 11/15/18 Range/Units 18:45 WBC (4.8-10.8) K/uL RBC (4.2-5.4) M/uL Hgb (12.0-16.0) g/dL POC Hgb 13.3 (12.0-16.0) g/dl Hct (37-47) % POC Hct 39 (37-47) % MCV (80-100) fL MCH (25-34) pg MCHC (32-36) g/dL RDW Std Deviation (36.4-46.3) fL RDW Coeff of Tony (11.5-14.5) % Plt Count (130-400) K/uL MPV (7.4-10.4) fL Immature Gran % (Auto) % Neut % (Auto) % Lymph % (Auto) % [place] % (Auto) % Eos % (Auto) % Baso % (Auto) % Immature Gran # (Auto) (0.00-0.02) K/uL Neut # (Auto) (1.4-6.5) K/uL Lymph # (Auto) (1.2-3.4) K/uL [place] # (Auto) (0.11-0.59) K/uL Eos # (Auto) (0-0.5) K/uL Baso # (Auto) (0-0.2) K/uL POC Sodium 137 (135-144) mEq/L Sodium (136-145) mmol/L POC Potassium 3.6 (3.3-5.0) mEq/L Potassium (3.5-5.1) mmol/L POC Chloride 98 L (101-112) mEq/L Chloride (98-107) mmol/L Carbon Dioxide (21-32) mmol/L POC Total CO2 28 (24-31) mEq/l Anion Gap (3-11) POC Anion Gap 16.0 (16-25) mmol/L POC BUN 17 (7-18) mg/dl BUN (7-18) mg/dl Creatinine (0.6-1.2) mg/dl POC Creatinine 0.7 (0.6-1.3) mg/dl Est Cr Clr Drug Dosing ml/min Est GFR ( Amer) Est GFR (Non-Af Amer) BUN/Creatinine Ratio (10-20) Glucose (70-99) mg/dl POC Glucose (other) 90 (70-99) mg/dl Calcium (8.5-10.1) mg/dl POC Ioniz Calcium [place] 1.11 L (1.12-1.32) mmol/l Total Bilirubin (0.2-1) mg/dl AST (15-37) U/L ALT (12-78) U/L Alkaline Phosphatase (45-117) U/L Total Protein (6.4-8.2) gm/dl Albumin (3.4-5.0) gm/dl Globulin (2.5-4.0) gm/dl Albumin/Globulin Ratio (0.9-2) Lipase (73-393) U/L Specimen Hemolysis Urine Color Urine Appearance (Clear) Urine pH (4.5-7.5) Ur Specific [employer] (1.000-1.030) Urine Protein (Negative) Urine Glucose (UA) (Negative) Urine Ketones (Negative) Urine Blood (Negative) Urine Nitrite (Negative) Urine Bilirubin (Negative) Urine Urobilinogen (Negative) Ur Leukocyte Esterase (Negative) Urine WBC (Auto) (0-5) /hpf Urine RBC (Auto) (0-4) /hpf U Hyaline Cast (Auto) (0-5) /lpf U Epithel Cells (Auto) (0-5) /lpf Urine Bacteria (Auto) (Negative) Imaging Data Radiologist's Impression: Radiology results as stated below per my review and the radiologist's interpretation: CT OF THE ABDOMEN AND PELVIS WITH CONTRAST CLINICAL HISTORY: Right lower quadrant abdominal pain. COMPARISON STUDY: CT of the abdomen and pelvis October 29, 2016. TECHNIQUE: Following IV administration of 94 mL of Optiray-320, axial images of the abdomen and pelvis were obtained from the lung bases to the proximal femurs. Images were reviewed in the axial, sagittal, and coronal planes. IV contrast was administered without complication. Automated exposure control was utilized for the study. A dose lowering technique was utilized adhering to the principles of ALARA. CT DOSE: 277.82 mGy.cm FINDINGS: Lung bases are clear. The liver, spleen, adrenal glands, kidneys and pancreas are normal. There is no biliary or pancreatic ductal dilatation. No hydronephrosis. There is no evidence for a bowel obstruction. A few appendi coliths within the base of the appendix are noted. The appendix is dilated, measuring 1.3 cm in caliber. There is moderate periappendiceal infiltration. There is no free air or abscess. There is no evidence for a bowel obstruction. No suspicious osseous lesions are noted. IMPRESSION: Acute appendicitis. No free air or abscess. A few appendicoliths within a moderately dilated appendix with moderate periappendiceal infiltration. Electronically signed by: Beau Gipson M.D. 11/15/2018 7:27 PM Blood Pressure Blood Pressure Findings: Normal blood pressure MDM Narrative The patient is a 52-year-old female who presented to the emergency department for an evaluation of right-sided abdominal pain. The patient's history and physical exam appear to be consistent with acute appendicitis. CT of the abdomen and pelvis was obtained. This confirmed acute appendicitis. The patient was treated with IV fluids and IV pain medication. She was also treated with IV antibiotics. I discussed her case with the on-call general surgeon. They have agreed to evaluate the patient in the emergency department for further management and disposition. I discussed the patient's laboratory and radiogr aphic studies with her and her significant other. Impression & Plan Acute appendicitis Discharge Plan Visit Data *Final* Discharge Date/Time: 11/15/18 20:38 Chief Complaint: Abdominal Pain Stated Complaint: SEVERE LOWER ABDOMINAL PAIN ED Provider: Rickey Lee Discharge Problem: Acute appendicitis Patient Disposition: Admitted As Inpatient Discharge Instructions Interventions: ED Discharge Assessment Last Done: 11/15/18 20:38 Discharge Problem: Acute appendicitis Qualifiers: Acute appendicitis type: with localized peritonitis Appendicitis gangrene presence: without gangrene Appendicitis perforation presence: without perforation Appendicitis abscess presence: without abscess Qualified Code(s): K35.30 - Acute appendicitis with localized peritonitis, without perforation or gangrene The scribe's documentation has been prepared under my direction and personally reviewed by me in its entirety. I confirm that the note above accurately reflects all work, treatment, procedures, and medical decision making performed by me.
--- NOTE | 2018-11-15 20:18 | History & Physical Report ---
Date of Service November 15, 2018 Assessment & Plan (1) Acute appendicitis: discussed options discussed risks ( bleeding/infection/dvt/pe/mi/cva/injury to other organs such as bowel, ureter, etc...) questions answered. will proceed with bella alcala. History of Present Illness Primary Care Provider: Juve Dodd MD pt with RLQ pain starting yesterday. got worse today before presenting to the ER. CT c/w acute appendicitis. WBC 12,000 Allergies Allergy/AdvReac Type Severity Reaction Status Date / Time fluconazole Allergy Intermediate Rash Verified 11/15/18 18:21 Home Medications Home Medications Medication Instructions Recorded Confirmed Type Lactobacillus acidophilus 460 mg PO QAM 11/15/18 11/15/18 History [Florajen] chloroquine phosphate 500 mg PO WK 11/15/18 11/15/18 History chlorthalidone 25 mg PO QAM 11/15/18 11/15/18 History cyanocobalamin (vitamin B-12) 1,000 mcg PO QAM 11/15/18 11/15/18 History [Vitamin B-12] hepatitis A virus vaccine (PF) 0 unit IM UD 11/15/18 11/15/18 History ibuprofen [Advil] 200 mg PO Q6H PRN 11/15/18 11/15/18 History linaclotide [Linzess] 145 mcg PO DAILY PRN 11/15/18 11/15/18 History magnesium oxide 400 mg PO BIDM 11/15/18 11/15/18 History omeprazole 20 mg PO DAILY PRN 11/15/18 11/15/18 History potassium chloride [Klor-Con M10] 20 meq PO QAM 11/15/18 11/15/18 History Past Med/Surg History Surgical History S/P hysterectomy (Resolved) Social History Preferred Language: Libyan Feels Safe at Home: Yes Smoking Status: Current every day smoker Review of Systems All systems reviewed & are unremarkable except as noted in HPI & below Physical Exam Vital Signs (Past 24 Hours): Last Vital Signs Temp 37.0 C 11/15/18 18:07 Pulse 86 11/15/18 19:36 Resp 20 11/15/18 19:36 BP 160/98 H 11/15/18 19:36 Pulse Ox 96 11/15/18 19:36 Physical Exam: alert/oriented. nad Heent: Pearla. EOMI. Heart: RRR Lungs: CTA b/l abd: soft. +RLQ ttp. + guarding. lower midline scar well healed. ext: no c/c/e
[2018-11-15] MEDS ORDERED: ATROPINE SULFATE 0.1 MG/ML 10ML SYR IV PRN (20:46)
[2018-11-15] MEDS ORDERED: ONDANSETRON INJ 2 MG/ML 2 ML VIAL IV PRN ×2 (20:46→23:16)
[2018-11-15] MEDS ORDERED: ePHEDrine sulfate 50 MG/ML AMP IV PRN (20:46)
[2018-11-15] MEDS ORDERED: cefOXitin 2,000 MG in DEXTROSE 5% 50 ML IV SCH (21:15)
--- NOTE | 2018-11-15 21:47 | Operative Report ---
Post Operative Report Pre & Post Diagnosis Operation Date: 11/15/18 20:30 Pre-Op Diagnosis: Acute Appendicitis Post-Op Diagnosis: Acute Appendicitis Procedure Operation Date: 11/15/18 20:30 Actual Procedures p Laparoscopic Appendectomy(Not Applicable) - Clarence Vargas DO Surgeon Clarence Vargas DO Apparel Sales Leader n/a Estimated Blood Loss 15 Findings Consistent with Post-Op Diagnosis Specimens appendix Description of Procedure After informed consent was obtained the patient was taken to the operating room and placed in supine position. After successful intubation a Rangel catheter was placed and the left arm was tucked. A Rangel catheter was inserted sterilely. I began by making a supra-umbilical incision with an 11 blade scalpel and carried this down through the soft tissue using electrocautery. The anterior rectus fascia was opened using electrocautery and 2 #0 Vicryl stay sutures were placed. The peritoneum was elevated using hemostats and incised under direct vision using a Metzenbaum scissor. A finger sweep was performed. A 12 mm Nelson trocar was placed and the abdomen was insufflated to 18 mmHg. A laparoscope was inserted and the abdomen was examined in 360. A suprapubic 5 mm port and a left lower quadrant 12 mm port were placed under direct vision. The patient was air planed to the left as well as placed in a slight Trendelenburg position. We began by looking in the right lower quadrant. We were able to readily identify the appendix and it was grossly inflamed. It had not perforated. There is a small amount of purulent fluid in the right lower quadrant and the pelvis. We immediately irrigated and suctioned this out. I was able to use primarily blunt dissection to pull the appendix away from the right lower quadrant sidewall. During this process it was slow inflamed that the tip of the appendix fell apart. I was able to grasp the distal one into the appendix and used a TONY brown cartridge stapler to divide the mesentery. This portion of the appendix was placed in the right upper quadrant and would be removed at the end of the case. I was then able to use a TONY purple cartridge stapler to transect the mesentery of the appendix up to its base with the cecum. A final purple cartridge 60 mm stapler was used to transect the actual base of the appendix at its junction with the cecum. There was a small amount of bleeding along the staple line and I used hemoclips to control this. The appendix as well as the previously removed distal tip were both then placed into an Endo Catch bag and removed from the camera port site. We thoroughly irrigated the right lower quadrant as well as the pelvis. There was adequate hemostasis. I ran the small bowel backwards from the terminal ileum for about 6 feet all of which was normal. All the peritoneal surfaces were normal. Small/ large bowel, liver, stomach etc. all appeared grossly normal. We did a final irrigation and then removed all the trochars and desufflated the abdomen. The fascia of the camera port as well as the left lower quadrant were closed using 0 Vicryl in [id number]-[id number] fashion. Wounds were all irrigated and closed using 4-0 Monocryl. Marcaine was injected around them for postoperative analgesia and skin glue used as a dressing. The patient was awakened extubated and transferred to recovery in stable condition. I attest to the content of the Intraoperative Record and any orders documented therein. Any exceptions are noted below.
[2018-11-15] MEDS: fentaNYL citrate 100 MCG/2 ML VIAL IV PRN ×4 (21:57→22:12)
[2018-11-15] MEDS: HYDROmorphone INJ 1 MG/ML SYRINGE IV PRN ×2 (22:18→22:23)
[2018-11-15] MEDS ORDERED: HYDROmorphone INJ 0.5 MG/0.5 ML SYR ONE (22:18)
--- NOTE | 2018-11-15 22:26 | Anesthesiology Progress Note ---
Date of Service November 15, 2018 Anesthesia Post Procedure Vital Signs Vital Signs: Temp Pulse Pulse Pulse Resp BP BP 11/15/18 22:20 74 16 118/74 11/15/18 22:10 72 16 114/77 11/15/18 22:00 68 16 115/73 11/15/18 21:52 38.1 C H 79 16 131/74 11/15/18 20:38 15 11/15/18 20:24 83 15 11/15/18 19:36 86 20 11/15/18 18:07 37.0 C 88 17 133/89 BP Pulse Ox 11/15/18 22:20 98 11/15/18 22:10 98 11/15/18 22:00 100 11/15/18 21:52 100 11/15/18 20:38 97 11/15/18 20:24 134/87 97 11/15/18 19:36 160/98 H 96 11/15/18 18:07 97 Pain Intensity Abdomen: Pain Intensity: 6 Transfer of Care Handoff Completed per policy Notes Mental Status: alert / awake / arousable and participated in evaluation Patient Amnestic to Procedure: Yes Nausea / Vomiting: adequately controlled Pain: adequately controlled Airway Patency, RR, SpO2: stable & adequate BP & HR: stable & adequate Hydration State: stable & adequate Anesthetic Complications: no major complications apparent and Pt Satisfied with anesthetic care
[2018-11-15] MEDS ORDERED: MoRPHine SULFATE 2 MG/ML CARP IV PRN (23:16)
[2018-11-15] MEDS ORDERED: HYDROCODONE/ACETAMOPHEN 5/325MG TAB PO PRN ×2 (23:16)
[2018-11-15] MEDS ORDERED: IBUPROFEN 600 MG TAB PO PRN (23:16)
[2018-11-15] MEDS ORDERED: PANTOprazole 40 MG TAB PO PRN (23:16)
[2018-11-15] MEDS ORDERED: ACETAMINOPHEN 1,000 MG/100 ML VIAL IV PRN (23:16)
[2018-11-16] MEDS: CEFAZOLIN 2000MG 2,000 MG/15 ML SYR IV SCH ×2 (00:32→08:02)
[2018-11-16] MEDS: LACTATED RINGER'S 1,000 ML IV SCH ×2 (00:35→08:50)
[2018-11-16] MEDS ORDERED: LINZESS~ORDER AWAITING ACTION SCH (08:00)
[2018-11-16] MEDS ORDERED: CHLORTHALIDONE 25 MG TAB PO SCH (09:00)
--- NOTE | 2018-11-16 10:00 | Surgery Progress Note ---
Date of Service November 16, 2018 Assessment & Plan (1) Acute appendicitis: POD #1 s/p Laparoscopic Appendectomy. Pt doing ok- incision sites painful- painful with positional changes. Had 1 does of IV pain meds this AM. Incisions clean, dry, intact- dermabond, gauze with tegaderm on umbilicus. Denies nausea Will advance diet as tolerated. Wants to go home later today- will check on later after lunch. as above. feeling well. expected incisional soreness ok for d/c instructions given. Subjective Patient resting in bed- having pain at incision sites, pain increases with movement. Pain that brought pt to ED has resolved. Denies nausea or vomiting. Armin clear liquid diet, but not hungry right now. Physical Exam Gastrointestinal (Abdomen): Inspection/Auscultation: abdomen not distended Percussion/Palpation: + abdomen tender (at incision sites. ) and abdomen soft Results & Data Vital Signs (Past 12 Hours) Vital Signs Temp Pulse Pulse Resp BP Pulse Ox 11/16/18 06:56 37.0 C 67 18 105/71 91 11/16/18 03:14 37.1 C 73 16 108/72 92 11/16/18 02:00 37.1 C 72 16 105/69 92 11/16/18 01:00 37.0 C 73 16 100/71 92 11/16/18 00:00 37.0 C 86 16 113/69 97 11/15/18 23:30 36.9 C 71 16 109/72 98 11/15/18 23:05 37.0 C 67 16 104/68 98 11/15/18 23:00 37.0 C 69 16 104/68 98 11/15/18 22:40 37.8 C H 72 16 108/67 96 11/15/18 22:30 37.8 C H 72 16 105/66 96 11/15/18 22:20 74 16 118/74 98 11/15/18 22:10 72 16 114/77 98 11/15/18 22:00 68 16 115/73 100 (1) Acute appendicitis Acute appendicitis type: with localized peritonitis Appendicitis abscess presence: without abscess Appendicitis gangrene presence: without gangrene Appendicitis perforation presence: without perforation Qualified Code(s): K35.30 - Acute appendicitis with localized peritonitis, without perforation or gangrene
--- NOTE | 2018-11-17 15:03 | Discharge Summary ---
Date of Service November 17, 2018 Admission HPI Per Admitting Provider pt with RLQ pain starting yesterday. got worse today before presenting to the ER. CT c/w acute appendicitis. WBC 12,000 Principal Diagnosis Acute Appendicitis Discharge Data Allergies Allergy/AdvReac Type Severity Reaction Status Date / Time fluconazole Allergy Intermediate Rash Verified 11/15/18 18:21 Procedures Performed Operation Date: 11/15/18 20:30 Actual Procedures p Laparoscopic Appendectomy(Not Applicable) - Clarence Vargas DO Ordered Studies 11/15/18 18:21 CT abd pelvis IV con only Stat Hospital Course (1) Acute appendicitis: POD #1 s/p Laparoscopic Appendectomy. Pt doing ok- incision sites painful- painful with positional changes. Had 1 does of IV pain meds this AM. Incisions clean, dry, intact- dermabond, gauze with tegaderm on umbilicus. Denies nausea Will advance diet as tolerated. Wants to go home later today- will check on later after lunch. as above. feeling well. expected incisional soreness ok for d/c instructions given. Total Time Total Time Spent Total Time Spent (In Minutes): 5 Discharge Plan Discharge Items Patient Disposition: Home - Self-Care Reason For Visit: APPENDICITIS Discharge Diagnosis: Appendicitis Discharge Goals: Decrease discomfort, Improve function and Therapeutic int ervention Activity: As commented below Lifting: No more than 10 pounds Bathing Comment: You may shower in 24 hrs, but do not soak or scrub your incisions. Exercise/Sports: Wait until after follow-up appointment Driving/Machine Use: Resume 1 day after discharge Non-emergency contact: Surgeon Call non-emergency contact if: you have any medication questions, your pain is not controlled, your temperature is above 101.5, your wound has increased redness and your wound has increased drainage Follow-up/Referrals: Juve Dodd MD [Primary Care Provider] - Clraence Vargas DO [Surgeon] - (Please call the General Surgery clinic at [phone] to schedule a follow-up appointment with Dr. Vargas. Please call the clinic with any questions or concerns. ) Diet: Regular Addtl Provider Instructions: You may remove your surgical dressings in 24 hrs and shower. Do not soak or scrub your incisions. Do not submerge your incisions in any pools, baths, or hot tubs. Please follow-up with Dr. Vargas in the General Surgery clinic in 1-2 weeks. You will need to call our clinic at [phone] to schedule this appointment. Prescriptions: New hydrocodone-acetaminophen [[place]] 5-325 mg tablet 1 - 2 tab PO Q6H PRN (Reason: pain) 3 Days Qty: 24 RF: 0 Continued cyanocobalamin (vitamin B-12) [Vitamin B-12] 1,000 mcg Tablet 1,000 mcg PO QAM RF: 0 magnesium oxide 400 mg (241.3 mg magnesium) tablet 400 mg PO BIDM RF: 0 ibuprofen [Advil] 200 mg Tablet 200 mg PO Q6H PRN (Reason: Pain) RF: 0 omeprazole 20 mg Capsule,Delayed Release(Dr/Ec) 20 mg PO DAILY PRN (Reason: Gi Upset) RF: 0 potassium chloride [Klor-Con M10] 10 mEq tablet,ER particles/crystals 20 meq PO QAM RF: 0 hepatitis A virus vaccine (PF) 25 unit/0.5 mL Suspension IM UD RF: 0 Linzess 145 mcg Capsule 145 mcg PO DAILY PRN (Reason: Restless Leg(S)) RF: 0 chloroquine phosphate 500 mg tablet 500 mg PO WK RF: 0 chlorthalidone 25 mg tablet 25 mg PO QAM RF: 0 Florajen 460 mg (20 billion cell) capsule 460 mg PO QAM RF: 0 Stand-Alone Forms: Call Back Authorization, My [facility] in Management Krames/Other Patient Handouts: Surgery Prevent DVT After Discharge Orders: Discharge Order (Routine); Ordered 11/16/18 Ordered By: Janie Snow Admission Data Admit Date/Time: 11/15/18 22:09 Attending Provider: Clarence Vargas Admit Provider: Clarence Vargas Primary Care Provider: Juve Dodd Service: Surgical Services Other Interventions: Discharge Summary Assessment (RN) Last Done: 11/16/18 13:25 Pending Studies at Discharge: Yes Studies:: Pathology report. DC Date/Time DO NOT enter until pt leaves facility: 11/16/18 14:05
== END 2018-11-16 14:05 | disposition home or self-care (01) ==
LOC: ED 17:46 → ASU 20:38 → 3W 20:38